=== PATIENT | male | born 1950 | race Caucasian/White ===

== ENCOUNTER → 2017-02-20 | Outpatient (CLI) | payer OTHER, MEDICARE ==
[~2017-02-20] MED LIST: ASPI-621 PO; CARV25TA12 PO; CLOP75TA22 PO; DIAZ10TA4 PO; ETAN50DI SC; LOSA50TA6 PO; ROSU40TA PO; TRAM50TA2 PO
== END | disposition home or self-care (01) ==
LOC: LAB 10:25
PROVIDERS: ATTEND Anesthesiology
DX: I24.0 Acute coronary thrombosis not resulting in myocardial infarction (principal); Z79.01 Long term (current) use of anticoagulants
CPT/HCPCS: 36415; 85610

== ENCOUNTER → 2017-03-07 | Outpatient (CLI) | payer OTHER, MEDICARE | END | disposition home or self-care (01) | LOC: CFH 09:45 | PROVIDERS: ATTEND Internal Medicine Cardiovascular Disease | DX: I08.1 Rheumatic disorders of both mitral and tricuspid valves (principal); I25.5 Ischemic cardiomyopathy | CPT/HCPCS: C8929 ==

== ENCOUNTER → 2017-03-21 | Outpatient (CLI) | payer OTHER, MEDICARE | END | disposition home or self-care (01) | LOC: LAB 08:51 | PROVIDERS: ATTEND Nurse Practitioner Family | DX: I24.0 Acute coronary thrombosis not resulting in myocardial infarction (principal); Z79.01 Long term (current) use of anticoagulants | CPT/HCPCS: 36415; 85610 ==

== ENCOUNTER → 2017-05-23 | Outpatient (CLI) | payer OTHER, MEDICARE ==
[2017-05-23 10:03] LABS: ASPARTATE AMINO TRANSFERASE 15 U/L (15-37); BLOOD UREA NITROGEN 22 mg/dL (7-18)
[2017-05-23 10:06] LABS: PATH.CAST-FLAG NOT PRESENT; SPERM-FLAG NOT PRESENT; SRC-FLAG NOT PRESENT; XTAL-FLAG NOT PRESENT; YLC-FLAG NOT PRESENT
== END | disposition home or self-care (01) ==
LOC: LAB 09:38
PROVIDERS: ATTEND Internal Medicine Nephrology
DX: I12.9 Hypertensive chronic kidney disease with stage 1 through stage 4 chronic kidney disease, or unspecified chronic kidney disease (principal); N18.3 Chronic kidney disease, stage 3 (moderate); M45.9 Ankylosing spondylitis of unspecified sites in spine
CPT/HCPCS: 36415; 80053; 81001; 84100; 85025

== ENCOUNTER → 2017-05-30 | Outpatient (CLI) | payer OTHER, MEDICARE | END | disposition home or self-care (01) | LOC: LAB 09:38 | PROVIDERS: ATTEND Family Medicine | DX: E03.9 Hypothyroidism, unspecified (principal); D51.9 Vitamin B12 deficiency anemia, unspecified | CPT/HCPCS: 36415; 82607; 82746; 84443 ==

== ENCOUNTER → 2017-12-11 | Outpatient (CLI) | payer OTHER, MEDICARE ==
[~2017-12-11] MED LIST changes: -CLOP75TA22 PO; +CLOP75TA52 PO; -ETAN50DI SC; +ETAN50DI2 SC
[2017-12-11 11:31] LABS: MICROSCOPIC NOT IND
[2017-12-11 11:32] LABS: CULTURE INDICATED? NO
[2017-12-11 11:42] LABS: ALANINE AMINOTRANSFERASE 27 U/L (12-78); ALBUMIN 3.7 g/dL (3.4-5.0); ANION GAP 9 mmol/L (5-15); CALCIUM 9.4 mg/dL (8.5-10.1); CHLORIDE 110 mmol/L (98-107); CREATININE 1.87 mg/dL (0.7-1.3)
[2017-12-11 11:45] LABS: ALKALINE PHOSPHATASE 68 U/L (45-117); BILIRUBIN,TOTAL 1.1 mg/dL (0.2-1.0); TOTAL PROTEIN 8.1 g/dL (6.4-8.2)
[2017-12-11 11:53] LABS: BASOPHILS # (AUTO) 0.04 x10^3/uL (0-0.1); BASOPHILS % (AUTO) 0 % (0-1); EOSINOPHILS # (AUTO) 0.35 x10^3/uL (0-0.4); EOSINOPHILS % (AUTO) 4 % (1-7); LYMPHOCYTES # (AUTO) 2.39 x10^3/uL (1-3.4); LYMPHOCYTES % (AUTO) 28 % (22-44); MD NO; MEAN CORPUSCULAR HEMOGLOBIN 30.5 pg (27.5-34.5); MEAN CORPUSCULAR HGB CONC 32.8 g/dL (33.2-36.2); MEAN CORPUSCULAR VOLUME 92.7 fL (81-97); MEAN PLATELET VOLUME 7.8 fL (7.4-10.4); MONOCYTES # (AUTO) 0.89 x10^3/uL (0.2-0.8); MONOCYTES % (AUTO) 10 % (2-9); NEUTROPHILS # (AUTO) 4.91 x10^3/uL (1.8-6.8); NEUTROPHILS % (AUTO) 57 % (42-75); PLATELET COUNT 290 x10^3/uL (130-400); RED BLOOD COUNT 5.27 x10^6/uL (4.38-5.82)
== END | disposition home or self-care (01) ==
LOC: LAB 11:10
PROVIDERS: ATTEND Internal Medicine Nephrology
DX: I12.9 Hypertensive chronic kidney disease with stage 1 through stage 4 chronic kidney disease, or unspecified chronic kidney disease (principal); N18.3 Chronic kidney disease, stage 3 (moderate); M45.9 Ankylosing spondylitis of unspecified sites in spine
CPT/HCPCS: 36415; 80053; 81003; 84100; 84550; 85025

== ENCOUNTER → 2018-06-03 | Outpatient (CLI) | payer OTHER, MEDICARE ==
[2018-06-03 12:55] LABS: BASOPHILS # (AUTO) 0.04 x10^3/uL (0-0.1); BASOPHILS % (AUTO) 1 % (0-1); EOSINOPHILS # (AUTO) 0.44 x10^3/uL (0-0.4); EOSINOPHILS % (AUTO) 5 % (1-7); LYMPHOCYTES # (AUTO) 2.41 x10^3/uL (1-3.4); LYMPHOCYTES % (AUTO) 27 % (22-44); MD NO; MEAN CORPUSCULAR HEMOGLOBIN 31.9 pg (27.5-34.5); MEAN CORPUSCULAR HGB CONC 34.3 g/dL (33.2-36.2); MEAN CORPUSCULAR VOLUME 92.9 fL (81-97); MEAN PLATELET VOLUME 7.5 fL (7.4-10.4); MONOCYTES # (AUTO) 0.81 x10^3/uL (0.2-0.8); MONOCYTES % (AUTO) 9 % (2-9); NEUTROPHILS # (AUTO) 5.08 x10^3/uL (1.8-6.8); NEUTROPHILS % (AUTO) 58 % (42-75); PLATELET COUNT 248 x10^3/uL (130-400); RED BLOOD COUNT 5.04 x10^6/uL (4.38-5.82); RED CELL DISTRIBUTION WIDTH 13.4 % (9.4-14.8)
[2018-06-03 13:00] LABS: CALCIUM 9.9 mg/dL (8.5-10.1)
[2018-06-03 13:04] LABS: BILIRUBIN, DIRECT 0.3 mg/dL (0.1-0.2)
[2018-06-03 13:17] LABS: MICROSCOPIC INDICATED
[2018-06-03 13:24] LABS: CREATININE,URINE RANDOM 55.6 mg/dL
== END | disposition home or self-care (01) ==
LOC: LAB 12:21
PROVIDERS: ATTEND Internal Medicine Nephrology
DX: I13.0 Hypertensive heart and chronic kidney disease with heart failure and stage 1 through stage 4 chronic kidney disease, or unspecified chronic kidney disease (principal); I50.20 Unspecified systolic (congestive) heart failure; N18.3 Chronic kidney disease, stage 3 (moderate); E78.00 Pure hypercholesterolemia, unspecified; M54.9 Dorsalgia, unspecified; R80.9 Proteinuria, unspecified; I25.10 Atherosclerotic heart disease of native coronary artery without angina pectoris
CPT/HCPCS: 36415; 81001; 82248; 82306; 82310; 82570; 83735; 83970; 84156; 84550; 85025

== ENCOUNTER → 2019-01-13 | Outpatient (CLI) | payer OTHER, MEDICARE ==
[~2019-01-13] MED LIST changes: +ACET-1600 PO; -ASPI-621 PO; +ASPI81TA45 PO; +CARV-39 PO; +CHOL100012 PO; +ETAN50DI2 INJ; +KRIL1CAP9 PO; +LOSA50TA14 PO; -LOSA50TA6 PO; +VALS160T3 PO; +WARF-36 PO
[2019-01-13 12:59] LABS: BASOPHILS # (AUTO) 0.03 x10^3/uL (0-0.1); BASOPHILS % (AUTO) 0 % (0-1); EOSINOPHILS # (AUTO) 0.17 x10^3/uL (0-0.4); EOSINOPHILS % (AUTO) 1 % (1-7); LYMPHOCYTES # (AUTO) 1.64 x10^3/uL (1-3.4); LYMPHOCYTES % (AUTO) 13 % (22-44); MD NO; MEAN CORPUSCULAR HEMOGLOBIN 30.8 pg (27.5-34.5); MEAN CORPUSCULAR HGB CONC 33.1 g/dL (33.2-36.2); MEAN CORPUSCULAR VOLUME 93.1 fL (81-97); MEAN PLATELET VOLUME 8.1 fL (7.4-10.4); MONOCYTES # (AUTO) 1.15 x10^3/uL (0.2-0.8); MONOCYTES % (AUTO) 9 % (2-9); NEUTROPHILS # (AUTO) 9.53 x10^3/uL (1.8-6.8); NEUTROPHILS % (AUTO) 76 % (42-75); PLATELET COUNT 266 x10^3/uL (130-400); RED CELL DISTRIBUTION WIDTH 13.4 % (9.4-14.8)
[2019-01-13 13:05] LABS: CULTURE INDICATED? YES; MICROSCOPIC AUTO
[2019-01-13 13:10] LABS: INTERNATIONAL NORMALIZED RATIO 2.64 (0.93-1.1)
[2019-01-13 13:11] LABS: ALANINE AMINOTRANSFERASE 16 U/L (12-78); ALBUMIN 3.9 g/dL (3.4-5.0); ANION GAP 7 mmol/L (5-15); CALCIUM 10.2 mg/dL (8.5-10.1); CHLORIDE 109 mmol/L (98-107); CREATININE 1.81 mg/dL (0.7-1.3)
[2019-01-13 13:13] LABS: ALKALINE PHOSPHATASE 74 U/L (45-117); BILIRUBIN,TOTAL 1.4 mg/dL (0.2-1.0); TOTAL PROTEIN 8.6 g/dL (6.4-8.2)
[2019-01-13 13:31] LABS: PROTHROMBIN TIME 26.7 Seconds (9.6-11.5)
== END | disposition home or self-care (01) ==
LOC: STAR 10:54
PROVIDERS: ATTEND Orthopaedic Surgery
DX: Z01.818 Encounter for other preprocedural examination (principal); R00.0 Tachycardia, unspecified; M17.12 Unilateral primary osteoarthritis, left knee; Z79.899 Other long term (current) drug therapy
CPT/HCPCS: 36415; 80053; 81001; 85025; 85610; 85730; 87081; 87086; 93005

== ENCOUNTER 2019-01-26 09:28 | Inpatient (IN) | payer OTHER, MEDICARE ==
[2019-01-13 11:45] VITALS: BP 156/83
[~2019-01-26] VITALS: Ht 160 cm; Wt 83.8 kg
[~2019-01-26 09:28] MED LIST changes: +EPINEPHRINE 1 MG/ML, 1ML ONE; +KETOROLAC 60 MG/2 ML ONE; +ROPIvacaine/PF 0.2%, 20 ML ONE; +SODIUM CHLORIDE 0.9% 50 ML ONE; +TRANEXAMIC ACID 100 MG/ML, 10ML ONE
[2019-01-26] MEDS ORDERED: LACTATED RINGERS 1,000 ML IV SCH (10:26)
[2019-01-26] MEDS ORDERED: VANCOMYCIN PER PHARMACY MC PRN (10:30)
[2019-01-26] MEDS ORDERED: VANCOMYCIN 1,400 MG in SODIUM CHLORIDE 0.9% 250 ML IV ONE (10:30)
[2019-01-26 11:46] LABS: INTERNATIONAL NORMALIZED RATIO 1.01 (0.93-1.1); PROTHROMBIN TIME 10.6 Seconds (9.6-11.5)
[2019-01-26] MEDS ORDERED: MIDAZOLAM 1 MG/ML, 2ML ONE (12:08)
[2019-01-26] MEDS ORDERED: WATER-INJECTION,STERILE 10 ML IV ONE (12:09)
[2019-01-26] MEDS ORDERED: FENTANYL PF 250 MCG/5ML ONE (12:09)
[2019-01-26] MEDS ORDERED: CEFAZOLIN 1,000 MG ONE ×2 (12:09)
[2019-01-26] MEDS ORDERED: PROPOFOL 10 MG/ML, 20ML ONE (12:10)
[2019-01-26] MEDS ORDERED: LIDOCAINE-MPF 2% ,5ML ONE (12:10)
[2019-01-26] MEDS ORDERED: ACETAMINOPHEN 500 MG TABLET PO ONE (12:30)
[2019-01-26] MEDS ORDERED: GABAPENTIN 300 MG CAPSULE PO ONE (12:30)
[2019-01-26] MEDS ORDERED: SCOPOLAMINE PATCH, 1.5MG PATCH.TD72 TD ONE (12:30)
[2019-01-26] MEDS ORDERED: SUGAMMADEX 200 MG/2 ML IVPush ONE (13:17)
[2019-01-26] MEDS ORDERED: DEXAMETHASONE 4 MG/ML, 1ML ONE (13:17)
[2019-01-26] MEDS ORDERED: ONDANSETRON 2MG/ML, 2ML ONE (13:17)
[2019-01-26] MEDS ORDERED: ROCURONIUM 10MG/ML,5ML ONE (13:17)
[2019-01-26] MEDS ORDERED: VANCOMYCIN 1,000 MG ONE (13:56)
[2019-01-26] MEDS ORDERED: FENTANYL PF 100 MCG/2ML IV PRN (14:00)
[2019-01-26] MEDS ORDERED: hydrALAzine 20 MG/ML, 1ML IV PRN (14:00)
[2019-01-26] MEDS ORDERED: HYDROcodone/APAP 7.5-325MG/15ML UDC PO PRN (14:00)
[2019-01-26] MEDS ORDERED: HALOPERIDOL 5 MG/ML IV PRN (14:00)
[2019-01-26] MEDS ORDERED: PROMETHAZINE 25 MG/ML, 1ML IV PRN (14:00)
[2019-01-26] MEDS ORDERED: MEPERIDINE/PF 25MG/0.5ML IVPush PRN (14:00)
[2019-01-26] MEDS ORDERED: ONDANSETRON 2MG/ML, 2ML IV PRN (15:00)
[2019-01-26] MEDS ORDERED: SENNA/DOCUSATE TABLET PO PRN (15:00)
[2019-01-26] MEDS ORDERED: DIAZEPAM 5 MG TABLET PO PRN (15:00)
[2019-01-26] MEDS ORDERED: DIPHENHYDRAMINE 50 MG CAPSULE PO PRN (15:00)
[2019-01-26] MEDS ORDERED: ALUMINUM/MAG/SIMETHICONE 30 ML UDC PO PRN (15:00)
[2019-01-26] MEDS ORDERED: PROMETHAZINE 12.5 MG SUPP PR PRN (15:00)
[2019-01-26] MEDS ORDERED: HYDROmorphone 1 MG/ML, 1ML AMP IV PRN (15:00)
[2019-01-26] MEDS ORDERED: BISACODYL 10 MG SUPP PR PRN (15:00)
[2019-01-26] MEDS ORDERED: ONDANSETRON 4 MG TABLET PO PRN (15:00)
[2019-01-26] MEDS ORDERED: ZOLPIDEM 5MG TABLET PO PRN (15:00)
[2019-01-26] MEDS ORDERED: MAGNESIUM HYDROXIDE 8%, 30ML UDC PO PRN (15:00)
[2019-01-26] MEDS ORDERED: PROMETHAZINE 25 MG/ML, 1ML IM PRN (15:00)
[2019-01-26] MEDS ORDERED: HYDROmorphone 1 MG/ML, 1ML AMP ONE (15:08)
[2019-01-26] MEDS ORDERED: HYDROcodone/APAP 7.5-325MG/15ML UDC ONE (15:08)
[2019-01-26] MEDS: HYDROmorphone 2 MG/ML, 1ML IVPush PRN ×2 (15:12→15:25)
[2019-01-26] MEDS ORDERED: TRANEXAMIC ACID 1,000 MG in SODIUM CHLORIDE 0.9% 100 ML IVPB ONE (15:15)
[2019-01-26 15:50] VITALS: BP 124/77
[2019-01-26] MEDS ORDERED: HYDROmorphone 2 MG/ML, 1ML ONE (16:00)
[2019-01-26] MEDS: ACETAMINOPHEN 500 MG TABLET PO SCH ×2 (16:05→20:24)
[2019-01-26] MEDS: D5%-0.45% NACL 1,000 ML IV SCH (16:06)
[2019-01-26] MEDS: TAMSULOSIN 0.4 MG CAP.ER.24H PO SCH (16:34)
[2019-01-26] MEDS: DOCUSATE 100 MG CAPSULE PO SCH (20:24)
[2019-01-26] MEDS: OXYcodone IR 5MG TABLET PO PRN (20:24)
[2019-01-26] MEDS: KETOROLAC 30 MG/1 ML IV SCH (20:25)
[2019-01-26] MEDS: CARVEDILOL 25 MG TABLET PO SCH (20:28)
[2019-01-26 20:50] VITALS: BP 98/53
[2019-01-26] MEDS ORDERED: TEMPLATE NON-FORMULARY MED. (Rosuvastatin Calcium** (Crestor**) 40 MG) PO SCH (21:00)
[2019-01-26] MEDS: CEFAZOLIN PMX 2GM/50ML 50 ML IVPB SCH (21:48)
[2019-01-27 00:10] VITALS: BP 113/67
[2019-01-27] MEDS: D5%-0.45% NACL 1,000 ML IV SCH ×2 (00:46→06:12)
[2019-01-27] MEDS: ACETAMINOPHEN 500 MG TABLET PO SCH ×2 (03:10→08:42)
[2019-01-27 03:53] VITALS: BP 118/60
[2019-01-27] MEDS ORDERED: ENOXAPARIN 40 MG/0.4 ML SQ SCH (06:00)
[2019-01-27] MEDS ORDERED: DEXAMETHASONE 4 MG/ML, 1ML IVPush SCH (06:00)
[2019-01-27] MEDS: CEFAZOLIN PMX 2GM/50ML 50 ML IVPB SCH (06:12)
[2019-01-27 07:23] VITALS: BP 115/58
[2019-01-27] MEDS: DOCUSATE 100 MG CAPSULE PO SCH (08:41)
[2019-01-27] MEDS: CARVEDILOL 25 MG TABLET PO SCH (08:42)
[2019-01-27] MEDS: KETOROLAC 30 MG/1 ML IV SCH (08:42)
[2019-01-27] MEDS: TAMSULOSIN 0.4 MG CAP.ER.24H PO SCH (08:42)
[2019-01-27] MEDS ORDERED: KETOROLAC 30 MG/1 ML ONE (08:52)
[2019-01-27] MEDS ORDERED: WARFARIN 5 MG TABLET PO-COUM SCH (09:00)
[2019-01-27] MEDS ORDERED: VALSARTAN 160 MG TABLET PO SCH (09:00)
[2019-01-27] MEDS ORDERED: MULTIVITAMINS/MINERALS TABLET PO SCH (09:00)
[2019-01-27] MEDS: OXYcodone IR 5MG TABLET PO PRN (11:04)
[2019-01-27 11:05] VITALS: BP 117/58
[2019-01-27] MEDS ORDERED: OXYC5TAB3 PO (12:39)
[2019-01-27] MEDS ORDERED: ETANERCEPT 50 MG INJ SCH (15:00)
== END 2019-01-27 13:35 | disposition home or self-care (01) | DRG 470 ==
LOC: OUT 09:28 → ORIP 14:44 → 4NOR 15:45
PROVIDERS: ADMIT Orthopaedic Surgery; ATTEND Orthopaedic Surgery
PROC: 3E0T3BZ Introduction of Anesthetic Agent into Peripheral Nerves and Plexi, Percutaneous Approach (ICD-10-PCS; 2019-01-26)
PROC: 0SRD0J9 Replacement of Left Knee Joint with Synthetic Substitute, Cemented, Open Approach (ICD-10-PCS; principal; 2019-01-26 12:45)
DX: M17.12 Unilateral primary osteoarthritis, left knee (principal); M06.4 Inflammatory polyarthropathy; M21.062 Valgus deformity, not elsewhere classified, left knee; M81.0 Age-related osteoporosis without current pathological fracture; I10 Essential (primary) hypertension; E78.5 Hyperlipidemia, unspecified; M06.9 Rheumatoid arthritis, unspecified; I25.10 Atherosclerotic heart disease of native coronary artery without angina pectoris; Z96.651 Presence of right artificial knee joint; Z86.711 Personal history of pulmonary embolism; Z95.5 Presence of coronary angioplasty implant and graft; Z88.0 Allergy status to penicillin; Z88.8 Allergy status to other drugs, medicaments and biological substances; Z79.01 Long term (current) use of anticoagulants
CPT/HCPCS: 36415; 85014; 85018; 85610; C1713; G0378; J0171; J0690; J1100; J1170; J1650; J1885; J2250; J2405; J2704; J2795; J3010; J3370; J3490; C1776; J7050; J7120

== ENCOUNTER → 2019-05-15 | Outpatient (CLI) | payer OTHER, MEDICARE ==
[~2019-05-15] MED LIST changes: -EPINEPHRINE 1 MG/ML, 1ML ONE; -KETOROLAC 60 MG/2 ML ONE; +OXYC5TAB3 PO; -ROPIvacaine/PF 0.2%, 20 ML ONE; -SODIUM CHLORIDE 0.9% 50 ML ONE; -TRANEXAMIC ACID 100 MG/ML, 10ML ONE
[2019-05-15 11:00] LABS: BASOPHILS # (AUTO) 0.05 x10^3/uL (0-0.1); BASOPHILS % (AUTO) 1 % (0-1); EOSINOPHILS # (AUTO) 0.52 x10^3/uL (0-0.4); EOSINOPHILS % (AUTO) 7 % (1-7); LYMPHOCYTES % (AUTO) 29 % (22-44); MD NO; MEAN CORPUSCULAR HEMOGLOBIN 30.8 pg (27.5-34.5); MEAN CORPUSCULAR VOLUME 93.1 fL (81-97); MEAN PLATELET VOLUME 7.3 fL (7.4-10.4); MONOCYTES % (AUTO) 11 % (2-9); NEUTROPHILS # (AUTO) 4.07 x10^3/uL (1.8-6.8); NEUTROPHILS % (AUTO) 53 % (42-75); PLATELET COUNT 242 x10^3/uL (130-400); RED BLOOD COUNT 4.85 x10^6/uL (4.38-5.82); RED CELL DISTRIBUTION WIDTH 14.1 % (9.4-14.8)
[2019-05-15 11:10] LABS: CHLORIDE 114 mmol/L (98-107)
[2019-05-15 11:12] LABS: MICROSCOPIC AUTO
[2019-05-15 11:19] LABS: CULTURE INDICATED? YES
[2019-05-15 11:26] LABS: ALANINE AMINOTRANSFERASE 20 U/L (12-78); ALKALINE PHOSPHATASE 75 U/L (45-117); ANION GAP 8 mmol/L (5-15); CHOL/HDL RATIO 2.5; CHOLESTEROL, TOTAL 126 mg/dL (140-239); CREATININE 1.93 mg/dL (0.7-1.3); HDL CHOL % 40 % (26-37); HDL CHOLESTEROL (DIRECT) 50 mg/dL (40-60); LDL CHOLESTEROL,CALCULATED 52 mg/dL (54-169); T4 (THYROXINE) 8.6 mcg/dL (4.5-12.1); TOTAL PROTEIN 8.1 g/dL (6.4-8.2); TRIGLYCERIDES 120 mg/dL (50-200); VLDL CHOLESTEROL 24 mg/dL (0-25)
== END | disposition home or self-care (01) ==
LOC: LAB 10:30
PROVIDERS: ATTEND Family Medicine
DX: E03.9 Hypothyroidism, unspecified (principal); E78.5 Hyperlipidemia, unspecified; M25.50 Pain in unspecified joint; D64.9 Anemia, unspecified; R53.83 Other fatigue; R97.20 Elevated prostate specific antigen [PSA]; N39.9 Disorder of urinary system, unspecified
CPT/HCPCS: 36415; 80053; 80061; 84153; 84436; 84443; 84481; 85025

== ENCOUNTER 2019-06-15 09:48 | Outpatient (CLI) | payer OTHER, MEDICARE | END 2019-06-15 23:59 | disposition home or self-care (01) | LOC: LAB 09:48 | PROVIDERS: ATTEND Internal Medicine Nephrology | DX: N18.3 Chronic kidney disease, stage 3 (moderate) (principal); M45.5 Ankylosing spondylitis of thoracolumbar region | CPT/HCPCS: 36415; 80053; 81001; 82570; 84100; 84156; 85025; 85651; 86140 ==

== ENCOUNTER → 2019-09-02 | Outpatient (CLI) | payer OTHER, MEDICARE | END | disposition home or self-care (01) | LOC: CFH 10:48 | PROVIDERS: ATTEND Internal Medicine Cardiovascular Disease | DX: I08.3 Combined rheumatic disorders of mitral, aortic and tricuspid valves (principal); I25.5 Ischemic cardiomyopathy; I10 Essential (primary) hypertension; I25.2 Old myocardial infarction; I74.9 Embolism and thrombosis of unspecified artery; Z86.718 Personal history of other venous thrombosis and embolism; Z86.14 Personal history of Methicillin resistant Staphylococcus aureus infection; Z84.89 Family history of other specified conditions; Z88.0 Allergy status to penicillin; Z91.048 Other nonmedicinal substance allergy status | CPT/HCPCS: C8929; Q9957 ==

== ENCOUNTER → 2020-05-10 | Outpatient (CLI) | payer OTHER, MEDICARE ==
[2020-05-10 12:37] LABS: CHLORIDE 111 mmol/L (98-107)
[2020-05-10 12:42] LABS: ALANINE AMINOTRANSFERASE 17 U/L (12-78); ALBUMIN 3.8 g/dL (3.4-5.0); ALKALINE PHOSPHATASE 67 U/L (45-117); ANION GAP 6 mmol/L (5-15); BILIRUBIN,TOTAL 1.1 mg/dL (0.2-1.0); CALCIUM 9.9 mg/dL (8.5-10.1); CHOL/HDL RATIO 2.8; CHOLESTEROL, TOTAL 125 mg/dL (140-239); CREATININE 2.81 mg/dL (0.7-1.3); HDL CHOL % 36 % (26-37); HDL CHOLESTEROL (DIRECT) 45 mg/dL (40-60); LDL CHOLESTEROL,CALCULATED 55 mg/dL (54-169); LDL/HDL RATIO 1.2 (0.5-3.0); TOTAL PROTEIN 8.4 g/dL (6.4-8.2); TRIGLYCERIDES 123 mg/dL (50-200); VLDL CHOLESTEROL 25 mg/dL (0-25)
== END | disposition home or self-care (01) ==
LOC: LAB 10:02
PROVIDERS: ATTEND Internal Medicine Cardiovascular Disease
DX: E78.2 Mixed hyperlipidemia (principal); I25.10 Atherosclerotic heart disease of native coronary artery without angina pectoris; I12.9 Hypertensive chronic kidney disease with stage 1 through stage 4 chronic kidney disease, or unspecified chronic kidney disease; N18.3 Chronic kidney disease, stage 3 (moderate)
CPT/HCPCS: 36415; 80053; 80061

== ENCOUNTER → 2020-07-20 | Outpatient (CLI) | payer OTHER, MEDICARE | END | disposition home or self-care (01) | LOC: CVU 12:09 | PROVIDERS: ATTEND Internal Medicine Cardiovascular Disease | DX: R09.89 Other specified symptoms and signs involving the circulatory and respiratory systems (principal) | CPT/HCPCS: 93880 ==

== ENCOUNTER → 2020-08-08 | Outpatient (CLI) | payer OTHER, MEDICARE | END | disposition home or self-care (01) | LOC: LAB 11:17 | PROVIDERS: ATTEND Specialist | DX: M54.9 Dorsalgia, unspecified (principal); Z79.899 Other long term (current) drug therapy | CPT/HCPCS: 36415; 86480 ==

== ENCOUNTER → 2021-03-30 | Outpatient (CLI) | payer MEDICARE ==
[~2021-03-30] MED LIST changes: -OXYC5TAB3 PO; +OXYC5TAB98 PO
== END | disposition home or self-care (01) ==
LOC: CFH 09:57
PROVIDERS: ATTEND Internal Medicine Cardiovascular Disease
DX: I08.0 Rheumatic disorders of both mitral and aortic valves (principal); I25.10 Atherosclerotic heart disease of native coronary artery without angina pectoris; I25.5 Ischemic cardiomyopathy; I11.9 Hypertensive heart disease without heart failure; I25.2 Old myocardial infarction
CPT/HCPCS: C8929; Q9957